=== PATIENT | female | born 1970 | race African-American/Black ===

== ENCOUNTER 2019-03-30 17:44 | Emergency (ER) | payer MEDICAID ==
[~2019-03-30] VITALS: Ht 162.6 cm; Wt 94.0 kg
[2019-03-30] MEDS ORDERED: FOLI20CA PO (18:06)
[2019-03-30] MEDS ORDERED: ASPI-1393 PO (18:06)
[2019-03-30] MEDS ORDERED: ALBU6.7H IH (18:06)
[2019-03-30] MEDS ORDERED: METF-815 PO (18:06)
[2019-03-30] MEDS ORDERED: LIP40 PO (18:06)
[2019-03-30] MEDS ORDERED: FERR325T23 GT (18:06)
[2019-03-30] MEDS ORDERED: ONDANSETRON HCL 4MG/2ML INJ IV STA (20:48)
[2019-03-30] MEDS ORDERED: SODIUM CHLORIDE 0.9% 1,000 ML IV ONE (20:48)
[2019-03-30] MEDS ORDERED: MORPHINE SULFATE 4 MG/ML CPJ (NOT FOR IM USE) IV STA (20:48)
[2019-03-30] MEDS ORDERED: FAMOTIDINE 20MG/2ML VIAL IV ONE (21:00)
[2019-03-30 21:13] LABS: CLARITY URINE CLEAR (CLEAR); COLOR URINE YELLOW (YELLOW); KETONES URINE NEGATIVE (NEGATIVE); LEUKOCYTE ESTERASE URINE 1+ (NEGATIVE); NITRITE URINE NEGATIVE (NEGATIVE); OCCULT BLOOD URINE NEGATIVE (NEGATIVE); PH URINE 7.5 (4.5-8.0); PROTEIN URINE NEGATIVE (NEGATIVE); SPECIFIC GRAVITY URINE 1.013 (1.005-1.030); UROBILINOGEN URINE 0.2 E.U./dL (0.2-1.0)
[2019-03-30 21:28] LABS: *AMPHETAMINES SCREEN URINE NEGATIVE (NEGATIVE); *BARBITURATES SCREEN URINE NEGATIVE (NEGATIVE); *BENZODIAZEPINES SCREEN URINE NEGATIVE (NEGATIVE); *COCAINE SCREEN URINE NEGATIVE (NEGATIVE); METHADONE URINE SCREEN NEGATIVE (NEGATIVE); OPIATES URINE SCREEN NEGATIVE (NEGATIVE)
[2019-03-30 21:29] LABS: CANNABINOID URINE SCREEN NEGATIVE (NEGATIVE); PHENCYCLIDINE URINE SCREEN NEGATIVE (NEGATIVE)
[2019-03-30 22:39] LABS: HCG SCREEN NEGATIVE
[2019-03-30 22:40] LABS: BASOPHILS % 0.4 % (0.0-2.0); EOSINOPHILS % 3.9 % (0.0-5.0); HEMATOCRIT. 35.4 % (36.0-48.0); HEMOGLOBIN. 11.6 g/dL (12.0-16.0); LYMPHOCYTES % 42.8 % (20.0-50.0); MEAN CORPUSCULAR HEMOGLOBIN 27.7 pg (28.0-32.0); MEAN CORPUSCULAR VOLUME 84.6 fL (81.0-99.0); MEAN PLATELET VOLUME 9.4 fl (7.4-10.4); MONOCYTES % 4.9 % (2.0-8.0); PLATELET 191 x1000/uL (130-400); RED BLOOD CELL COUNT 4.18 mill/uL (4.2-5.4); RED CELL DISTRIBUTION WIDTH 15.3 % (11.6-14.6)
[2019-03-30 22:43] LABS: CHLORIDE 107 mEq/L (98-107)
[2019-03-30 22:47] LABS: ETHANOL BLOOD < 10 mg/dL
[2019-03-31 00:35] VITALS: BP 130/64
== END 2019-03-31 01:56 | disposition home or self-care (01) ==
LOC: ER 17:44
DX: N30.90 Cystitis, unspecified without hematuria (principal); R03.0 Elevated blood-pressure reading, without diagnosis of hypertension
CPT/HCPCS: 36415; 74176; 80053; 80305; 80320; 81003; 81025; 83690; 83880; 84484; 84703; 85025; 93005; 96374; 96375; 99284; J2270; J2405; J3490; J7030; Z7610; G0480